=== PATIENT | male | born 1980 | race Caucasian/White ===

== ENCOUNTER 2025-02-07 17:26 | Emergency (ER) | payer MEDICAID, OTHER ==
[~2025-02-07] VITALS: Ht 172.7 cm; Wt 84.6 kg
[2025-02-07 17:28] VITALS: BP_SYST 142; PULSE 82; RESP 16; TEMP 98.1; O2SAT 100
[2025-02-07] MEDS ORDERED: NITROGLYCERIN 0.4 MG SL TAB SL ONE (17:45)
== END 2025-02-07 18:17 | disposition left against medical advice (07) ==
LOC: ER 17:30
DX: R53.1 Weakness (principal); Z79.899 Other long term (current) drug therapy